=== PATIENT | male | born 1985 | race Caucasian/White ===

== ENCOUNTER 2017-11-22 21:58 | Emergency (ER) | payer OTHER ==
[~2017-11-22] VITALS: Ht 172.7 cm; Wt 79.4 kg
[~2017-11-22 21:58] MED LIST: TRAMADOL 50 MG50 MG PO
[2017-11-22 22:02] VITALS: BP 123/76
[2017-11-22] MEDS ORDERED: HYDROXYZINE HCL25 M1 PO (22:46)
[2017-11-22] MEDS ORDERED: KEFLEX250 MG PO (22:46)
== END 2017-11-22 22:59 | disposition home or self-care (01) ==
LOC: M.ERS 21:58
DX: L23.7 Allergic contact dermatitis due to plants, except food (principal)